=== PATIENT | female | born 1930 | race Caucasian/White ===

== ENCOUNTER → 2016-11-13 | Outpatient (CLI) | payer MEDICARE, BC ==
--- NOTE | 2016-11-13 13:07 | US ---
EXAMINATION TYPE: US venous Doppler duplex LE LT DATE OF EXAM: 11/13/2016 12:26 PM COMPARISON: NONE CLINICAL HISTORY: LLE Swelling R22.42. Increased left ankle swelling with skin redness compared to ri ght leg with symptoms bilaterally x months per patient. SIDE PERFORMED: Left TECHNIQUE: The lower extremity deep venous system is examined utilizing real time linear array sonog parth with graded compression, Doppler sonography and color-flow sonography. VESSELS IMAGED: Common Femoral Vein Deep Femoral Vein Greater Saphenous Vein * Femoral Vein Popliteal Vein Small Saphenous Vein * Proximal Calf Veins (* superficial vessels) Left Leg: Negative for DVT. Edema fluid channels are noted at left ankle at area of swelling. Grayscale, color Doppler, spectral doppler imaging performed of the deep veins of the lower extremiti es. There is normal flow, compressibility, vascular waveforms bilaterally. IMPRESSION: No ultrasound evidence for acute DVT in the left lower extremity. Mild to moderate sub cutaneous edema at left ankle joint level is noted.
== END | disposition home or self-care (01) ==
LOC: RADUSWWP 11:52
PROVIDERS: ATTEND Internal Medicine
DX: R60.0 Localized edema (principal)

== ENCOUNTER 2017-11-13 09:44 | Inpatient (IN) | payer MEDICARE, BC ==
[2017-11-13] MEDS ORDERED: SODIUM CHLORIDE 0.9% 1,000 ML IV STA (10:01)
--- NOTE | 2017-11-13 10:27 | ED ---
General Adult HPI - General Chief complaint: Recheck/Abnormal Lab/Rx Stated complaint: Abnormal Labs Time Seen by Provider: 11/13/17 10:00 Source: patient, family, RN notes reviewed, old records reviewed Mode of arrival: ambulatory Limitations: no limitations - History of Present Illness Initial comments: 87-year-old female presenting for evaluation of abnormal outpatient laboratory study. Patient was found to have sodium of 1:15 yesterday. These labs were obtained secondary to patient's worsening confusion over the past several weeks. She did have some mild forgetfulness prior to this. However over the past several weeks her family member states she has significantly declined. Patient is also had increased thirst and polydipsia. Past medical history includes hypertension and hypercholesterolemia. She is currently on 20 mg of Lasix and Dyazide. These medications were held yesterday secondary to her complaint of worsening confusion. Patient has no fever chills. No chest pain or shortness of breath. No complaints of focal weakness or paresthesias. No headache. She does have chronic left lower extremity swelling over the past year. She has been evaluated by ultrasound for DVT or primary care physician approximately one year ago. - Related Data Home Medications Medication Instructions Recorded Confirmed Ascorbic Acid [Vitamin C] 500 mg PO DAILY 11/13/17 11/13/17 Furosemide [Lasix] 20 mg PO DAILY 11/13/17 11/13/17 Meloxicam [Mobic] 7.5 mg PO DAILY 11/13/17 11/13/17 Metoprolol Tartrate [Lopressor] 25 mg PO BID 11/13/17 11/13/17 Simvastatin [Zocor] 40 mg PO DAILY 11/13/17 11/13/17 Triamterene-Hctz 37.5-25Mg 1 cap PO DAILY 11/13/17 11/13/17 [Dyazide 37.5-25 Capsule] Allergies Allergy/AdvReac Type Severity Reaction Status Date / Time No Known Allergies Allergy Verified 11/13/17 10:14 Review of Systems ROS Statement: Those systems with pertinent positive or pertinent negative responses have been documented in the HPI. ROS Other: All systems not noted in ROS Statement are negative. Past Medical History Past Medical History: Heart Failure, Hyperlipidemia, Hypertension History of Any Multi-Drug Resistant Organisms: None Reported Past Surgical History: No Surgical Hx Reported Past Psychological History: No Psychological Hx Reported Smoking Status: Never smoker Past Alcohol Use History: None Reported Past Drug Use History: None Reported General Exam Limitations: no limitations General appearance: alert, in no apparent distress Head exam: Present: atraumatic, normocephalic Eye exam: Present: normal appearance, PERRL, EOMI ENT exam: Present: normal exam Neck exam: Present: normal inspection. Absent: tenderness, meningismus Respiratory exam: Present: normal lung sounds bilaterally. Absent: respiratory distress, wheezes Cardiovascular Exam: Present: regular rate, normal rhythm GI/Abdominal exam: Present: soft. Absent: distended, tenderness, guarding Extremities exam: Present: pedal edema (Mild swelling of the left lower extremity compared to the right.). Absent: calf tenderness Neurological exam: Present: alert, CN II-XII intact. Absent: motor sensory deficit Psychiatric exam: Present: normal affect, normal mood Skin exam: Present: warm, dry, intact. Absent: cyanosis, diaphoretic Course Vital Signs 11/13/17 11/13/17 09:56 10:44 Temperature 98.2 F 98.4 F Pulse Rate 80 71 Respiratory 20 18 Rate Blood Pressure 148/71 O2 Sat by Pulse 96 95 Oximetry - Reevaluation(s) Reevaluation #1: 11/13/17 11:39 EKG is obtained, does show left bundle branch block. Patient has no known history of left bundle branch block, she denies any current chest pain or recent chest pain. Patient's family is made aware of this abnormal EKG. EKG Findings - EKG Comments: EKG Findings:: EKG: Normal sinus rhythm, left axis deviation, left bundle branch block, rate of 68, CT interval 176, QRS duration 122, QTC 484. No old for comparison. Medical Decision Making - Medical Decision Making 87 -year-old female presenting for evaluation of abnormal sodium and progressive confusion. Patient is on 2 diuretics including Lasix and Dyazide. Likely her hyponatremia is related to diuretic therapy. Remainder of her laboratory studies reveal a chloride of 72, stable hemoglobin. Other electrolytes are within normal limits. Patient is started on 75 mL an hour of normal saline. She will require fluid restriction and sodium monitoring. She will be admitted for further evaluation and treatment. Urinalysis is pending. - Lab Data Result diagrams: 11/13/17 10:40 11/13/17 10:40 Lab Results 11/13/17 11/13/17 11/13/17 Range/Units 10:40 10:40 10:40 WBC 12.8 H (3.8-10.6) k/uL RBC 5.09 (3.80-5.40) m/uL Hgb 15.6 (11.4-16.0) gm/dL Hct 44.7 (34.0-46.0) % MCV 87.8 (80.0-100.0) fL MCH 30.5 (25.0-35.0) pg MCHC 34.8 (31.0-37.0) g/dL RDW 12.4 (11.5-15.5) % Plt Count 316 (150-450) k/uL Neutrophils % 82 % Lymphocytes % 7 % Monocytes % 9 % Eosinophils % 1 % Basophils % 1 % Neutrophils # 10.5 H (1.3-7.7) k/uL Lymphocytes # 0.9 L (1.0-4.8) k/uL Monocytes # 1.1 H (0-1.0) k/uL Eosinophils # 0.1 (0-0.7) k/uL Basophils # 0.1 (0-0.2) k/uL PT (9.0-12.0) sec INR (<1.2) APTT (22.0-30.0) sec Sodium 117 L* (137-145) mmol/L Potassium 4.0 (3.5-5.1) mmol/L Chloride 78 L* (98-107) mmol/L Carbon Dioxide 32 H (22-30) mmol/L Anion Gap 7 mmol/L BUN 19 H (7-17) mg/dL Creatinine 0.74 (0.52-1.04) mg/dL Est GFR (CKD-EPI)AfAm 84 (>60 ml/min/1.73 sqM) Est GFR (CKD-EPI)NonAf 73 (>60 ml/min/1.73 sqM) Glucose 100 H (74-99) mg/dL Calcium 8.7 (8.4-10.2) mg/dL Phosphorus 3.1 (2.5-4.5) mg/dL Magnesium 2.0 (1.6-2.3) mg/dL Total Bilirubin 1.6 H (0.2-1.3) mg/dL AST 81 H (14-36) U/L ALT 51 (9-52) U/L Alkaline Phosphatase 52 (38-126) U/L Total Creatine Kinase 380 H (30-135) U/L CK-MB (CK-2) 6.7 H* (0.0-2.4) ng/mL CK-MB (CK-2) Rel Index 1.8 Troponin I <0.012 (0.000-0.034) ng/mL Total Protein 6.3 (6.3-8.2) g/dL Albumin 3.6 (3.5-5.0) g/dL 11/13/17 Range/Units 10:40 WBC (3.8-10.6) k/uL RBC (3.80-5.40) m/uL Hgb (11.4-16.0) gm/dL Hct (34.0-46.0) % MCV (80.0-100.0) fL MCH (25.0-35.0) pg MCHC (31.0-37.0) g/dL RDW (11.5-15.5) % Plt Count (150-450) k/uL Neutrophils % % Lymphocytes % % Monocytes % % Eosinophils % % Basophils % % Neutrophils # (1.3-7.7) k/uL Lymphocytes # (1.0-4.8) k/uL Monocytes # (0-1.0) k/uL Eosinophils # (0-0.7) k/uL Basophils # (0-0.2) k/uL PT 9.9 (9.0-12.0) sec INR 1.0 (<1.2) APTT 25.5 (22.0-30.0) sec Sodium (137-145) mmol/L Potassium (3.5-5.1) mmol/L Chloride (98-107) mmol/L Carbon Dioxide (22-30) mmol/L Anion Gap mmol/L BUN (7-17) mg/dL Creatinine (0.52-1.04) mg/dL Est GFR (CKD-EPI)AfAm (>60 ml/min/1.73 sqM) Est GFR (CKD-EPI)NonAf (>60 ml/min/1.73 sqM) Glucose (74-99) mg/dL Calcium (8.4-10.2) mg/dL Phosphorus (2.5-4.5) mg/dL Magnesium (1.6-2.3) mg/dL Total Bilirubin (0.2-1.3) mg/dL AST (14-36) U/L ALT (9-52) U/L Alkaline Phosphatase (38-126) U/L Total Creatine Kinase (30-135) U/L CK-MB (CK-2) (0.0-2.4) ng/mL CK-MB (CK-2) Rel Index Troponin I (0.000-0.034) ng/mL Total Protein (6.3-8.2) g/dL Albumin (3.5-5.0) g/dL Disposition Clinical Impression: Hyponatremia Disposition: ADMITTED IP TO THIS [facility] Condition: Stable Is patient prescribed a controlled substance at d/c from ED?: No Referrals: Rohan Elizabeth MD [Primary Care Provider] - 1-2 days Decision to Admit Reason: Admit from EC Decision Date: 11/13/17 Decision Time: 11:43
[2017-11-13 10:55] LABS: Basophils # (A) 0.1 k/uL (0-0.2); Basophils % (A) 1 %; Eosinophils # (A) 0.1 k/uL (0-0.7); Eosinophils % (A) 1 %; HCT 44.7 % (34.0-46.0); HGB 15.6 gm/dL (11.4-16.0); Lymphocytes # (A) 0.9 k/uL (1.0-4.8); Lymphocytes % (A) 7 %; MCH 30.5 pg (25.0-35.0); MCHC 34.8 g/dL (31.0-37.0); MCV 87.8 fL (80.0-100.0); Monocytes # (A) 1.1 k/uL (0-1.0); Monocytes % (A) 9 %; Neutrophils # (A) 10.5 k/uL (1.3-7.7); Neutrophils % (A) 82 %; Platelet Count 316 k/uL (150-450); RBC 5.09 m/uL (3.80-5.40); RDW 12.4 % (11.5-15.5); WBC 12.8 k/uL (3.8-10.6)
[2017-11-13 11:06] LABS: Albumin 3.6 g/dL (3.5-5.0); Calcium 8.7 mg/dL (8.4-10.2); Phosphorus 3.1 mg/dL (2.5-4.5); Total Bilirubin 1.6 mg/dL (0.2-1.3); Total Protein 6.3 g/dL (6.3-8.2)
[2017-11-13 11:10] LABS: Partial Thromboplastin Time 25.5 sec (22.0-30.0); Prothrombin Time 9.9 sec (9.0-12.0)
[2017-11-13 11:14] LABS: Creatine Kinase 380 U/L (30-135)
[2017-11-13 11:27] LABS: Troponin I <0.012 ng/mL (0.000-0.034)
[2017-11-13 11:34] LABS: Creatine Kinase MB 6.7 ng/mL (0.0-2.4)
[2017-11-13] MEDS ORDERED: NALOXONE 0.4 MG/ML 1 ML VIAL IV PRN (11:43)
[2017-11-13] MEDS ORDERED: DOCUSATE 100 MG CAP PO PRN (13:19)
[2017-11-13] MEDS ORDERED: MELATONIN 3 MG TABLET PO PRN (13:19)
[2017-11-13] MEDS ORDERED: ACETAMINOPHEN TAB 325 MG TAB PO PRN (13:19)
[2017-11-13] MEDS ORDERED: ONDANSETRON 4 MG/2 ML VIAL IVP PRN (13:19)
[2017-11-13 14:03] LABS: Appearance,Urine Clear (Clear); Bilirubin,Urine Negative (Negative); Blood,Urine Negative (Negative); Color,Urine Light Yellow; Glucose,Urine (UA) Negative (Negative); Ketones,Urine Negative (Negative); Leukocyte Esterase,Urine Negative (Negative); Nitrite,Urine Negative (Negative); PH, Urine 6.5 (5.0-8.0); Protein,Urine Negative (Negative); Specific Gravity,Urine 1.006 (1.001-1.035); Urobilinogen,Urine <2.0 mg/dL (<2.0)
--- NOTE | 2017-11-13 14:20 | P.HPIM ---
History of Present Illness H&P Date: 11/13/17 Chief Complaint: confusion Patient is an 87-year-old female with a past medical history of hypertension, dyslipidemia, osteoarthritis, and hearing loss who presented to the ER at the direction of Dr. Elizabeth for low sodium levels. She had been in Dr. Elizabeth's office yesterday for a medical evaluation for assisted living. The family had been seeking assisted living due to increasing confusion worsening over the last 2 weeks. At that point in time he maira blood work and this morning called the family with results of a sodium of 115, informed her not to take Lasix or Dyazide, and directed them to the ER. In the ER she underwent an extensive evaluation. Her vital signs were found to be within normal limits. Laboratory analysis revealed a white blood cell count of 12.8, sodium of 117, chloride 78, carbon dioxide 32, and BUN of 19. Her AST was mildly elevated at 81, total bilirubin 1.6. She was started on normal saline at a rate of 75 mL/h and arrangements were made for admission. Patient seen and examined with family present in the ER. They state that she has been getting confused over time. She's had increased confusion over the last 1-2 weeks especially. She also had a fall last week. She has been having more difficulty remembering things and events. They are unsure if she is taking her medications appropriately. She also reports that she's been drinking a lot of water. Her daughter reports that she drank approximately 5 pints of water over several hours when she was at home. They also report increased urination. She is chronic left lower extremity swelling which is unchanged. Per the daughter she has also been complaining of a gnawing in her stomach. Patient currently denies nausea, vomiting, diarrhea, constipation, and acid reflux. She also denies any abdominal pain at this time. Her daughter feels that her confusion has gotten somewhat better in the last 24 hours. They've been having caretakers stay with her as often as possible but she currently lives alone. They were seeking placement at an assisted living in [place] who currently has openings. Patient denies any chest pain, shortness of breath, palpitations, fainting, headache, seizures. She does report a "foggy feeling". She has not traveled anywhere recently or had any changes in medications. Review of Systems Positives: + Increased thirst, + increased urination, + confusion Pertinent positives and negatives as discussed in HPI, a complete review of systems was performed and all other systems are negative. Past Medical History Past Medical History: Hyperlipidemia, Hypertension, Osteoarthritis (OA) Additional Past Medical History / Comment(s): Per past medical record dated 2010 , pt has diverticulosis and hemorrhoids but pt/daughter do not recall this. History of Any Multi-Drug Resistant Organisms: None Reported Past Surgical History: Breast Surgery, Hysterectomy Additional Past Surgical History / Comment(s): colonoscopies/benign polypectomy , bilateral cataract removals with lens implants, benign L breast bx Past Anesthesia/Blood Transfusion Reactions: No Reported Reaction Past Psychological History: No Psychological Hx Reported Additional Psychological History / Comment(s): Pt resides alone in her own home. she uses a walker to ambulate. She has had a lady who does housework once a week and takes her shopping. She has been managing her own meds. She has been having increased confusion/forgetfullness. Smoking Status: Never smoker Past Alcohol Use History: None Reported Past Drug Use History: None Reported - Past Family History Father Family Medical History: Dementia Additional Family Medical History / Comment(s): Father around age 84yrs. Mother Family Medical History: Coronary Artery Disease (CAD) Additional Family Medical History / Comment(s): Mother around age 88yrs. Medications and Allergies Home Medications Medication Instructions Recorded Confirmed Type Ascorbic Acid [Vitamin C] 500 mg PO DAILY 11/13/17 11/13/17 History Furosemide [Lasix] 20 mg PO DAILY 11/13/17 11/13/17 History Meloxicam [Mobic] 7.5 mg PO DAILY 11/13/17 11/13/17 History Metoprolol Tartrate [Lopressor] 25 mg PO BID 11/13/17 11/13/17 History Simvastatin [Zocor] 40 mg PO DAILY 11/13/17 11/13/17 History Triamterene-Hctz 37.5-25Mg 1 cap PO DAILY 11/13/17 11/13/17 History [Dyazide 37.5-25 Capsule] Allergies Allergy/AdvReac Type Severity Reaction Status Date / Time No Known Allergies Allergy Verified 11/13/17 10:14 Physical Exam Osteopathic Statement: *. No significant issues noted on an osteopathic structural exam other than those noted in the History and Physical/Consult. Vitals: Vital Signs Temp Pulse Resp BP Pulse Ox 11/13/17 12:18 99 11/13/17 12:13 70 18 143/62 11/13/17 10:44 98.4 F 71 18 95 11/13/17 09:56 98.2 F 80 20 148/71 96 Intake and Output 11/12/17 11/13/17 11/13/17 22:59 06:59 14:59 Other: Weight 90 kg General: non toxic, no distress, appears at stated age, Obese Derm: Abrasion to the chin and left upper lip-family and patient are unsure how these occurred no unusual ecchymoses, warm, dry Head: atraumatic, normocephalic, symmetric Eyes: EOMI, no lid lag, anicteric sclera, pupils equal round reactive to light ENT: Nose and ears atraumatic, no thrush, no pharyngeal erythema, hard of hearing Neck: No thyromegaly, no cervical lymphadenopathy, trachea midline, supple Mouth: no lip lesion, mucus membranes moist Cardiovascular: S1S2 reg, no murmur, positive posterior tibial pulse bilateral, 2+ edema left LE, no edema R LE, capillary refill less than 2 seconds Lungs: Decreased breath sounds bilateral bases, no rhonchi, no rales , no accessory muscle use Abdominal: soft, nontender to palpation, no guarding, no appreciable organomegaly, normal bowel sounds Ext: no gross muscle atrophy, muscle strength 4 out of 5 all 4 extremities, finger to nose within normal limits, Psych: Alert, oriented to self and location, thinks it is 2018, appropriate affect Results CBC & Chem 7: 11/13/17 10:40 11/13/17 10:40 Labs: Abnormal Lab Results - Last 24 Hours (Table) 11/13/17 11/13/17 11/13/17 Range/Units 10:40 10:40 10:40 WBC 12.8 H (3.8-10.6) k/uL Neutrophils # 10.5 H (1.3-7.7) k/uL Lymphocytes # 0.9 L (1.0-4.8) k/uL Monocytes # 1.1 H (0-1.0) k/uL Sodium 117 L* (137-145) mmol/L Chloride 78 L* (98-107) mmol/L Carbon Dioxide 32 H (22-30) mmol/L BUN 19 H (7-17) mg/dL Glucose 100 H (74-99) mg/dL Total Bilirubin 1.6 H (0.2-1.3) mg/dL AST 81 H (14-36) U/L Total Creatine Kinase 380 H (30-135) U/L CK-MB (CK-2) 6.7 H* (0.0-2.4) ng/mL Comments: EKG is reviewed by myself reveals a left bundle branch block at 68 bpm, QRS 122 , KS interval is normal, no significant ST-T wave changes Thrombosis Risk Factor Assmnt - DVT/VTE Prophylaxis DVT/VTE Prophylaxis: Pharmacologic Prophylaxis ordered - Choose All That Apply Any of the Below Risk Factors Present?: Yes Each Factor Represents 1 point: Obesity (BMI >25) Other Risk Factors: Yes Each Risk Factor Represents 3 Points: Age 75 years or older Other congenital or acquired thrombophilia - If yes, enter type in comment: No Thrombosis Risk Factor Assessment Total Risk Factor Score: 4 Thrombosis Risk Factor Assessment Level: Moderate Risk Assessment and Plan Assessment: Symptomatic hyponatremia -The patient symptoms have been present for several weeks and I believe this was a slowly occurring hyponatremia therefore we will need to slowly increase serum sodium levels. -Careful fluid resuscitation with normal saline at 75 mL/h -Consult nephrology, currently awaiting call back -Electrolytes every 4 hours -Check urine sodium, urine osmolality, serum sodium, TSH is normal, check a.m. cortisol level -Remain off of Mobic, Lasix, hydrochlorothiazide, and triamterene -Has mild dependent edema will check echocardiogram to rule out congestive heart failure -Seizure precautions Acute encephalopathy, probable metabolic -Treatment as outlined above -Check urinalysis to rule out concomitant urinary tract infection with confusion and elevated white blood cell count Recent fall -Fall precautions -PT evaluation Hypertension -Off all diuretic therapy -Continue metoprolol Dyslipidemia -Statin therapy Elevated bilirubin -Undetermined significance -Repeat in a.m. -If remains elevated check liver ultrasound Dr. Hardeep cox. Surrogate decision-maker: Daughter-Shania Garcia CODE STATUS:DNC (see APC code) DVT prophylaxis: Lovenox Discussed with: Patient, family, ED nursing Anticipated discharge: 3-[address]: home vs Assisted living A total of 65 minutes was spent on the care of this complex patient more than 50 % of the time was spent in counseling and care coordination.
[2017-11-13 15:42] LABS: Appearance,Urine Clear (Clear); Bilirubin,Urine Negative (Negative); Blood,Urine Negative (Negative); Color,Urine Light Yellow; Glucose,Urine (UA) Negative (Negative); Ketones,Urine Negative (Negative); Leukocyte Esterase,Urine Negative (Negative); Nitrite,Urine Negative (Negative); PH, Urine 6.5 (5.0-8.0); Protein,Urine Negative (Negative); Specific Gravity,Urine 1.007 (1.001-1.035); Urobilinogen,Urine <2.0 mg/dL (<2.0)
[2017-11-13 19:03] LABS: Potassium 3.6 mmol/L (3.5-5.1)
[2017-11-13] MEDS: METOPROLOL TARTRATE 25 MG TAB PO SCH (20:17)
[2017-11-14 03:39] LABS: Potassium 4.1 mmol/L (3.5-5.1)
[2017-11-14 07:53] LABS: HCT 40.9 % (34.0-46.0); HGB 14.2 gm/dL (11.4-16.0); MCH 31.5 pg (25.0-35.0); MCHC 34.7 g/dL (31.0-37.0); MCV 90.6 fL (80.0-100.0); Mean Platelet Volume 5.9; Platelet Count 283 k/uL (150-450); RBC 4.51 m/uL (3.80-5.40); WBC 9.7 k/uL (3.8-10.6)
[2017-11-14 08:00] LABS: Albumin 3.1 g/dL (3.5-5.0); Calcium 8.6 mg/dL (8.4-10.2); Magnesium 2.3 mg/dL (1.6-2.3); Potassium 4.3 mmol/L (3.5-5.1); Total Bilirubin 1.2 mg/dL (0.2-1.3); Total Protein 5.6 g/dL (6.3-8.2)
[2017-11-14] MEDS ORDERED: DEXTROSE 5% IN WATER 1,000 ML IV ONE (08:26)
--- NOTE | 2017-11-14 08:35 | ECHOF ---
Referral Reason:edema, chf MEASUREMENTS -------- HEIGHT: 152.4 cm WEIGHT: 89.8 kg BP: RVIDd: 2.8 cm (< 3.3) IVSd: 1.2 cm (0.6 - 1.1) LVIDd: 3.4 cm (3.9 - 5.3) LVPWd: 1.3 cm (0.6 - 1.1) IVSs: 1.5 cm LVIDs: 2.7 cm LVPWs: 1.5 cm LAESV Index (A-L): 24.64 ml/m Ao Diam: 3.0 cm (2.0 - 3.7) AV Cusp: 1.6 cm (1.5 - 2.6) LA Diam: 3.2 cm (2.7 - 3.8) MV EXCURSION: 14.924 mm (> 18.000) MV EF SLOPE: 80 mm/s (70 - 150) EPSS: 0.7 cm MV E Rafael: 0.55 m/s MV DecT: 258 ms MV A Rafael: 0.87 m/s MV E/A Ratio: 0.63 RAP: 5.00 mmHg RVSP: 10.99 mmHg FINDINGS -------- Sinus rhythm. This was a technically adequate study. The left ventricular size is normal. There is moderate concentric left ventricular hypertrophy. O verall left ventricular systolic function is low-normal with, an EF between 50 - 55 %. The right ventricle is normal in size. The left atrial size is normal. The right atrial size is normal. The aortic valve is trileaflet, and appears structurally normal. No aortic stenosis or regurgitation. Mild mitral annular calcification present. Mild mitral regurgitation is present. Trace tricuspid regurgitation present. There is no evidence of pulmonary hypertension. The right ventricular systolic pressure, as measured by Doppler, is 10.99mmHg. The pulmonic valve was not well visualized. The aortic root size is normal. Echo free space represents a pericardial fat pad. CONCLUSIONS -------- 1. The left ventricular size is normal. 2. There is moderate concentric left ventricular hypertrophy. 3. Overall left ventricular systolic function is low-normal with, an EF between 50 - 55 %. 4. The right ventricle is normal in size. 5. The left atrial size is normal. 6. The right atrial size is normal. 7. The aortic valve is trileaflet, and appears structurally normal. No aortic stenosis or regurgitati on. 8. Mild mitral annular calcification present. 9. Trace tricuspid regurgitation present. 10. There is no evidence of pulmonary hypertension. 11. The right ventricular systolic pressure, as measured by Doppler, is 10.99mmHg. 12. The pulmonic valve was not well visualized. 13. The aortic root size is normal. 14. Echo free space represents a pericardial fat pad. LABORATORY EQUIPMENT CLEANER: Yessenia Greenberg RDCS
--- NOTE | 2017-11-14 09:27 | P.PN ---
Subjective Progress Note Date: 11/14/17 Principal diagnosis: Confusion Patient is an 87-year-old female with a past medical history of hypertension, dyslipidemia, osteoarthritis, and hearing loss who presented to the ER at the direction of Dr. Elizabeth for low sodium levels. She had been in Dr. Elizabeth's office yesterday for a medical evaluation for assisted living. The family had been seeking assisted living due to increasing confusion worsening over the last 2 weeks. At that point in time he maira blood work and this morning called the family with results of a sodium of 115, informed her not to take Lasix or Dyazide, and directed them to the ER. In the ER she underwent an extensive evaluation. Her vital signs were found to be within normal limits. Laboratory analysis revealed a white blood cell count of 12.8, sodium of 117, chloride 78, carbon dioxide 32, and BUN of 19. Her AST was mildly elevated at 81, total bilirubin 1.6. She was started on normal saline at a rate of 75 mL/h and she was admitted to the selective care unit. Her sodium slowly increased with her diuretics being held and minimal fluid resuscitation. However they abruptly increased by 6 in approximately 4 hours between 6:57 AM on the morning of 11/14. Her normal saline was transitioned to D5 to slow the rapid rate of correction. She is currently awaiting nephrology consultation. Urine sodium is less than 5 showing appropriate retention of sodium. Patient seen and examined at bedside. No chest pain, shortness of breath, nausea, or vomiting. She denies feeling lightheaded or dizzy. She is alert and oriented to self and place but does not remember me from yesterday. Case discussed with nursing. She will alert me when family arrives to hospital. Objective - Vital Signs Vital signs: Vital Signs Temp 96.9 F L 11/14/17 03:29 Pulse 69 11/14/17 03:30 Resp 18 11/14/17 03:30 BP 136/63 11/14/17 03:29 Pulse Ox 97 11/14/17 03:29 Intake & Output 11/13/17 11/14/17 11/14/17 18:59 06:59 18:59 Intake Total 100 1050 Output Total 300 Balance -200 1050 Weight 90 kg 88.8 kg Intake: Intake, IV Titration 850 Amount Sodium Chloride 0.9% 1, 850 000 ml @ 75 mls/hr IV . [id number] STA Rx#:[id number] Oral 100 200 Output: Urine 300 Other: Voiding Method Toilet # Voids 1 - Exam General: non toxic, no distress, appears at stated age, obese Derm: warm, dry Head: atraumatic, normocephalic, symmetric Eyes: EOMI, no lid lag, anicteric sclera Mouth: no lip lesion, mucus membranes moist Cardiovascular: S1S2 reg, no murmur, positive posterior tibial pulse bilateral, Lungs: Decreased breath sounds bilateral bases, no rhonchi, no rales , no accessory muscle use Abdominal: soft, nontender to palpation, no guarding, no appreciable organomegaly Ext: no gross muscle atrophy, 2+ edema left lower extremity, 1+ edema right lower extremity, no contractures Neuro: CN II-XI grossly intact, no focal neuro deficits Psych: Alert, oriented to place and self, believes it is 20 "something", appropriate affect - Labs CBC & Chem 7: 11/14/17 07:26 11/14/17 07:26 Labs: Abnormal Lab Results - Last 24 Hours (Table) 11/13/17 11/13/17 11/13/17 Range/Units 10:40 10:40 10:40 WBC 12.8 H (3.8-10.6) k/uL Neutrophils # 10.5 H (1.3-7.7) k/uL Lymphocytes # 0.9 L (1.0-4.8) k/uL Monocytes # 1.1 H (0-1.0) k/uL Sodium 117 L* (137-145) mmol/L Chloride 78 L* (98-107) mmol/L Carbon Dioxide 32 H (22-30) mmol/L BUN 19 H (7-17) mg/dL Glucose 100 H (74-99) mg/dL Osmolality (280-301) mosm/kg Total Bilirubin 1.6 H (0.2-1.3) mg/dL AST 81 H (14-36) U/L ALT (9-52) U/L Total Creatine Kinase 380 H (30-135) U/L CK-MB (CK-2) 6.7 H* (0.0-2.4) ng/mL Total Protein (6.3-8.2) g/dL Albumin (3.5-5.0) g/dL Ur Random Sodium (30-90) mmol/L 11/13/17 11/13/17 11/13/17 Range/Units 13:45 14:50 18:40 WBC (3.8-10.6) k/uL Neutrophils # (1.3-7.7) k/uL Lymphocytes # (1.0-4.8) k/uL Monocytes # (0-1.0) k/uL Sodium 118 L* 119 L* (137-145) mmol/L Chloride 76 L* 79 L* (98-107) mmol/L Carbon Dioxide 35 H 33 H (22-30) mmol/L BUN (7-17) mg/dL Glucose (74-99) mg/dL Osmolality 258 L (280-301) mosm/kg Total Bilirubin (0.2-1.3) mg/dL AST (14-36) U/L ALT (9-52) U/L Total Creatine Kinase (30-135) U/L CK-MB (CK-2) (0.0-2.4) ng/mL Total Protein (6.3-8.2) g/dL Albumin (3.5-5.0) g/dL Ur Random Sodium <5 L (30-90) mmol/L 11/13/17 11/14/17 11/14/17 Range/Units 22:33 03:11 07:26 WBC (3.8-10.6) k/uL Neutrophils # (1.3-7.7) k/uL Lymphocytes # (1.0-4.8) k/uL Monocytes # (0-1.0) k/uL Sodium 120 L* 123 L 129 L (137-145) mmol/L Chloride 82 L 86 L 88 L (98-107) mmol/L Carbon Dioxide 31 H 36 H (22-30) mmol/L BUN 18 H (7-17) mg/dL Glucose 104 H (74-99) mg/dL Osmolality (280-301) mosm/kg Total Bilirubin (0.2-1.3) mg/dL AST 63 H (14-36) U/L ALT 53 H (9-52) U/L Total Creatine Kinase (30-135) U/L CK-MB (CK-2) (0.0-2.4) ng/mL Total Protein 5.6 L (6.3-8.2) g/dL Albumin 3.1 L (3.5-5.0) g/dL Ur Random Sodium (30-90) mmol/L Assessment and Plan Assessment: Symptomatic hyponatremia -Patient was appropriately correcting slowly, however between 3-7 AM she had a rapid correction of 6. We will stop her normal saline and start D5 at 20 , pulse per hour well awaiting nephrology recommendations. -Await nephrology recommendations -Electrolytes every 4 hours -urine sodium less than 5, urine osmolality 242, serum sodium 258, TSH is normal , check a.m. cortisol level -Remain off of Mobic, Lasix, hydrochlorothiazide, and triamterene -Echocardiogram within normal limits other than moderate LVH -Seizure precautions Acute metabolic encephalopathy on top of probable dementia -Treatment as outlined above Recent fall -Fall precautions -PT evaluation Hypertension -Off all diuretic therapy -Continue metoprolol -Follow blood pressures Dyslipidemia -Statin therapy Elevated bilirubin, resolved We'll plan on updating family when they come to the hospital. Anticipate that patient will continue to need greater than 2 day stay due to her symptomatic hyponatremia, need for frequent laboratory analysis, and need for IV fluids. DVT prophylaxis: Lovenox Discussed with: Patient, nursing Anticipated discharge: 2-3days Anticipated discharge place: home vs Assisted living A total of 35 minutes was spent on the care of this complex patient more than 50 % of the time was spent in counseling and care coordination.
[2017-11-14] MEDS: METOPROLOL TARTRATE 25 MG TAB PO SCH ×2 (09:50→20:38)
[2017-11-14] MEDS: ATORVASTATIN 20 MG TAB PO SCH (09:50)
[2017-11-14] MEDS: ENOXAPARIN 40 MG/0.4 ML SYRINGE SQ SCH (09:50)
[2017-11-14 11:36] LABS: Potassium 3.9 mmol/L (3.5-5.1)
--- NOTE | 2017-11-14 14:00 | P.NPCON ---
History of Present Illness - Reason for Consult Consult date: 11/14/17 hyponatremia - Chief Complaint Confusion and hyponatremia - History of Present Illness 87-year-old female seen in consultation because of hyponatremia with a serum sodium of 115 associated with worsening of mental status.. After admission she has been corrected with saline and has rapidly corrected to 129 as of this morning. Patient is known with underlying forgetfulness and dementia but was able to live alone and take care of her own medications. No changes in recent medications. She is on Lasix and hydrochlorothiazide both. Supposedly according to daughter was present in the room when I interviewed the patient, patient had been drinking large amounts of cocaine and water. She was eating fairly as this is a daughter. There has been no confusion that the daughter can see regarding her medications intake Patient has been confused for the last 2 weeks. No history of nausea vomiting diarrhea. The past she's had left leg more swollen and has DVT ruled out about a year ago. Past Medical History Past Medical History: Hyperlipidemia, Hypertension, Osteoarthritis (OA) Additional Past Medical History / Comment(s): Per past medical record dated 2010 , pt has diverticulosis and hemorrhoids but pt/daughter do not recall this. History of Any Multi-Drug Resistant Organisms: None Reported Past Surgical History: Breast Surgery, Hysterectomy Additional Past Surgical History / Comment(s): colonoscopies/benign polypectomy , bilateral cataract removals with lens implants, benign L breast bx Past Anesthesia/Blood Transfusion Reactions: No Reported Reaction Past Psychological History: No Psychological Hx Reported Additional Psychological History / Comment(s): Pt resides alone in her own home. she uses a walker to ambulate. She has had a lady who does housework once a week and takes her shopping. She has been managing her own meds. She has been having increased confusion/forgetfullness. Smoking Status: Never smoker Past Alcohol Use History: None Reported Past Drug Use History: None Reported - Past Family History Father Family Medical History: Dementia Additional Family Medical History / Comment(s): Father around age 84yrs. Mother Family Medical History: Coronary Artery Disease (CAD) Additional Family Medical History / Comment(s): Mother around age 88yrs. Medications and Allergies Home Medications Medication Instructions Recorded Confirmed Type Ascorbic Acid [Vitamin C] 500 mg PO DAILY 11/13/17 11/13/17 History Furosemide [Lasix] 20 mg PO DAILY 11/13/17 11/13/17 History Meloxicam [Mobic] 7.5 mg PO DAILY 11/13/17 11/13/17 History Metoprolol Tartrate [Lopressor] 25 mg PO BID 11/13/17 11/13/17 History Simvastatin [Zocor] 40 mg PO DAILY 11/13/17 11/13/17 History Triamterene-Hctz 37.5-25Mg 1 cap PO DAILY 11/13/17 11/13/17 History [Dyazide 37.5-25 Capsule] Allergies Allergy/AdvReac Type Severity Reaction Status Date / Time No Known Allergies Allergy Verified 11/13/17 10:14 Physical Exam Vitals: Vital Signs Temp Pulse Pulse Resp BP BP Pulse Ox 11/14/17 03:30 69 18 11/14/17 03:29 96.9 F L 69 18 136/63 97 11/14/17 00:00 98.1 F 66 18 139/71 95 11/13/17 20:10 97.4 F L 77 16 157/71 94 L 11/13/17 18:22 96.7 F L 74 16 144/66 95 11/13/17 15:27 98.1 F 74 18 144/71 100 11/13/17 14:15 77 20 152/64 98 Intake and Output 11/13/17 11/14/17 11/14/17 22:59 06:59 14:59 Intake Total 100 1050 Balance 100 1050 Intake: Intake, IV Titration 850 Amount Sodium Chloride 0.9% 1, 850 000 ml @ 75 mls/hr IV . [id number] STA Rx#:[id number] Oral 100 200 Other: Voiding Method Toilet Toilet # Voids 1 Weight 88.8 kg Examinations awake alert. She is disoriented to time place but oriented to person. HEENT exam no JVP lymphadenopathy thyromegaly neck is supple no facial asymmetry pupils are equal. Heart sounds are unremarkable for any murmur rub gallop Abdomen soft nontender no organomegaly status masses Lungs are clear to auscultation percussion good air entry bilaterally Extremity exam was no edema on the right left has 1+ edema chronic. Neurologically awake alert but disoriented Results - Lab Results Most recent lab results Calcium 8.6 mg/dL (8.4-10.2) 11/14/17 07:26 Phosphorus 3.1 mg/dL (2.5-4.5) 11/13/17 10:40 Magnesium 2.3 mg/dL (1.6-2.3) 11/14/17 07:26 11/14/17 07:26 11/14/17 10:52 Assessment and Plan Assessment: Impression 1. Severe hyponatremia with sodium of 115 secondary to combination of large amount of water intake and beverage intake and Lasix and hydrochlorothiazide. 2. History of baseline forgetfulness and possibly mild early dementia, she was made worse by this hyponatremia and is now reversing sodium is up to 129 this morning. 3. Edema left leg more than right, History of DVT ruled out on the left leg 4. Obesity. Recommendation. 1. Agree with increasing the IV normal sign to 20 mL an hour and following up her sodium and allowing it to go up slowly to normal range. 2. In the future avoid hydrochlorothiazide and use Lasix sparingly. If necessary we can use Aldactone instead. 3. Check sodium every 8 hours for right now. 4. Patient needs to be under some supervision when discharged as she might get confused with her medications. Thank you for this consultation and we'll continue to follow
[2017-11-14 15:22] LABS: Potassium 5.2 mmol/L (3.5-5.1)
[2017-11-14 20:47] LABS: Potassium 4.3 mmol/L (3.5-5.1)
[2017-11-15 04:42] LABS: HGB 15.7 gm/dL (11.4-16.0); MCH 31.7 pg (25.0-35.0); MCV 93.1 fL (80.0-100.0); Mean Platelet Volume 5.8; Platelet Count 275 k/uL (150-450); RBC 4.94 m/uL (3.80-5.40); RDW 12.9 % (11.5-15.5); WBC 10.9 k/uL (3.8-10.6)
[2017-11-15 04:59] LABS: Albumin 3.5 g/dL (3.5-5.0); Calcium 8.9 mg/dL (8.4-10.2); Potassium 4.1 mmol/L (3.5-5.1); Total Bilirubin 1.1 mg/dL (0.2-1.3); Total Protein 6.2 g/dL (6.3-8.2)
--- NOTE | 2017-11-15 08:23 | P.PN ---
Subjective Progress Note Date: 11/15/17 Principal diagnosis: Confusion Patient is an 87-year-old female with a past medical history of hypertension, dyslipidemia, osteoarthritis, and hearing loss who presented to the ER at the direction of Dr. Elizabeth for low sodium levels. She had been in Dr. Elizabeth's office yesterday for a medical evaluation for assisted living. The family had been seeking assisted living due to increasing confusion worsening over the last 2 weeks. At that point in time he maira blood work and this morning called the family with results of a sodium of 115, informed her not to take Lasix or Dyazide, and directed them to the ER. In the ER she underwent an extensive evaluation. Her vital signs were found to be within normal limits. Laboratory analysis revealed a white blood cell count of 12.8, sodium of 117, chloride 78, carbon dioxide 32, and BUN of 19. Her AST was mildly elevated at 81, total bilirubin 1.6. She was started on normal saline at a rate of 75 mL/h and she was admitted to the selective care unit. Her sodium slowly increased with her diuretics being held and minimal fluid resuscitation. However they abruptly increased by 6 in approximately 4 hours between 6:57 AM on the morning of 11/14. Her normal saline was transitioned to D5 to slow the rapid rate of correction. She is currently awaiting nephrology consultation. Urine sodium is less than 5 showing appropriate retention of sodium. She was taken off all fluids on the afternoon of 11/14. On the moring of her sodium was 132. Her WBC had increased slightly and she was retaining more fluid. Her Blood pressure was elevated this morning. Patient seen and examined at bedside. She denies chest pain, shortness of breath, nausea, or vomiting. Had a BM yesterday. She is alert and oriented to self and place and remembers me from yesterday. She is asking when she will go home. I discussed that she will need close monitoring after her hospitalization and that we are looking into a place with [facility]. She understands and is better able to understand today. Told patient I am available to update family at any time today once they arrive. Case discussed with nursing. Objective - Vital Signs Vital signs: Vital Signs Temp 97.4 F L 11/15/17 04:00 Pulse 77 11/15/17 07:45 Resp 18 11/15/17 07:45 BP 152/81 11/15/17 04:00 Pulse Ox 95 11/15/17 04:00 Intake & Output 11/14/17 11/15/17 11/15/17 18:59 06:59 18:59 Intake Total 240 Balance 240 Weight 87.3 kg Intake: Oral 240 Other: Voiding Method Toilet Toilet Toilet # Voids 1 - Exam General: non toxic, no distress, appears at stated age, obese Derm: warm, dry Head: atraumatic, normocephalic, symmetric Eyes: EOMI, no lid lag, anicteric sclera Mouth: no lip lesion, mucus membranes moist Cardiovascular: S1S2 reg, no murmur, positive posterior tibial pulse bilateral, Lungs: rhonchi left base , no accessory muscle use Abdominal: soft, nontender to palpation, no guarding, no appreciable organomegaly Ext: no gross muscle atrophy, 2+ edema left lower extremity, 2+ edema right lower extremity, no contractures Neuro: CN II-XI grossly intact, no focal neuro deficits Psych: Alert, oriented to being in a hospital was unable to tell me that it is [place] today but is aware that it is 2018, appropriate affect - Labs CBC & Chem 7: 11/15/17 04:12 11/15/17 04:12 Labs: Abnormal Lab Results - Last 24 Hours (Table) 11/14/17 11/14/17 11/14/17 Range/Units 10:52 14:47 19:59 WBC (3.8-10.6) k/uL Sodium 129 L 128 L 130 L (137-145) mmol/L Potassium 5.2 H (3.5-5.1) mmol/L Chloride 88 L 90 L 90 L (98-107) mmol/L Carbon Dioxide 34 H 31 H (22-30) mmol/L Glucose (74-99) mg/dL AST (14-36) U/L ALT (9-52) U/L Total Protein (6.3-8.2) g/dL 11/15/17 11/15/17 Range/Units 04:12 04:12 WBC 10.9 H (3.8-10.6) k/uL Sodium 132 L (137-145) mmol/L Potassium (3.5-5.1) mmol/L Chloride 91 L (98-107) mmol/L Carbon Dioxide (22-30) mmol/L Glucose 121 H (74-99) mg/dL AST 50 H (14-36) U/L ALT 55 H (9-52) U/L Total Protein 6.2 L (6.3-8.2) g/dL Assessment and Plan Assessment: Symptomatic hyponatremia, improving - with increasing edema and elevated blood pressure will add aldactone at nephrology suggestion. Check CXR. -Await nephrology recommendations -Electrolytes in AM -urine sodium less than 5, urine osmolality 242, serum sodium 258, TSH is normal , a.m. cortisol level normal -Remain off of Mobic, Lasix, hydrochlorothiazide, and triamterene -Echocardiogram within normal limits other than moderate LVH -Seizure precautions discontinued Hypertension, accelerated -add aldactone and norvasc - follow BP closely -Continue metoprolol -Follow blood pressures Acute metabolic encephalopathy on top of probable dementia, mentation improving -Treatment as outlined above - may benefit from aricept, but will leave this to the discretion of her PCP. Recent fall -Fall precautions -PT evaluation Dyslipidemia -Statin therapy Elevated bilirubin, resolved Once BP controlled then transfer to [facility]. DVT prophylaxis: Lovenox Discussed with: Patient, nursing Anticipated discharge: 24-[address]: home vs Assisted living A total of 35 minutes was spent on the care of this complex patient more than 50 % of the time was spent in counseling and care coordination.
--- NOTE | 2017-11-15 09:15 | XR ---
EXAMINATION: XR chest 1V portable DATE AND TIME: 11/15/2017 8:30 AM ORDERING PROVIDER: Alcira Doran DO CLINICAL INDICATION: shortness of breath TECHNIQUE: AP portable upright COMPARISON: None. DESCRIPTION: The lungs are predominantly clear. However there is mild silhouetting of the lower lung zone pulmonary vasculature and the left heart border suggesting mild interstitial phase pulmonary robert ma if clinically corroborated. The pleural spaces are negative. The cardiac silhouette is not enlarged. The skeletal structures are intact without focal findings. The overlying soft tissues are prominent. IMPRESSION: Suspect mild interstitial phase pulmonary edema if clinically corroborated.
[2017-11-15] MEDS: ENOXAPARIN 40 MG/0.4 ML SYRINGE SQ SCH (09:24)
[2017-11-15] MEDS: SPIRONOLACTONE 25 MG TAB PO SCH (09:25)
[2017-11-15] MEDS: METOPROLOL TARTRATE 25 MG TAB PO SCH ×2 (09:25→20:30)
[2017-11-15] MEDS: ATORVASTATIN 20 MG TAB PO SCH (09:25)
[2017-11-15] MEDS: amLODIPine 2.5 MG TAB PO SCH (09:25)
--- NOTE | 2017-11-15 13:41 | P.PN ---
Subjective Progress Note Date: 11/15/17 Principal diagnosis: This is a 87-year-old female seen in consultation because of hyponatremia deemed to be from combination of Lasix and hydrochlorothiazide and excessive water intake. She was corrected with IV normal saline. Her mental status was somewhat worse and just has recovered now. She has baseline dementia. She can be discharged to a assisted living facility. She denies any nausea vomiting has a great appetite. No dizziness is able to walk. History of present illness Patient is known with underlying forgetfulness and dementia but was able to live alone and take care of her own medications. No changes in recent medications. She is on Lasix and hydrochlorothiazide both. Supposedly according to daughter was present in the room when I interviewed the patient, patient had been drinking large amounts of cocaine and water. She was eating fairly as this is a daughter. There has been no confusion that the daughter can see regarding her medications intake Patient has been confused for the last 2 weeks. Objective - Vital Signs Vital signs: Vital Signs Temp 97.4 F L 11/15/17 04:00 Pulse 77 11/15/17 07:45 Resp 18 11/15/17 07:45 BP 152/81 11/15/17 04:00 Pulse Ox 95 11/15/17 04:00 Intake & Output 11/14/17 11/15/17 11/15/17 18:59 06:59 18:59 Intake Total 240 Balance 240 Weight 87.3 kg Intake: Oral 240 Other: Voiding Method Toilet Toilet Toilet # Voids 1 On examination she is awake alert. Comfortable and cheerful HEENT exam no JVP neck is supple no facial asymmetry Lungs are clear to auscultation percussion good air entry bilaterally Heart sounds are unremarkable no murmur rub gallop Abdomen soft nontender no organomegaly status masses Extremity exam was trace edema Neurologically awake alert without any focal motor deficit. She is forgetful. - Labs CBC & Chem 7: 11/15/17 04:12 11/15/17 11:33 Labs: Abnormal Lab Results - Last 24 Hours (Table) 11/14/17 11/14/17 11/15/17 Range/Units 14:47 19:59 04:12 WBC (3.8-10.6) k/uL Sodium 128 L 130 L 132 L (137-145) mmol/L Potassium 5.2 H (3.5-5.1) mmol/L Chloride 90 L 90 L 91 L (98-107) mmol/L Carbon Dioxide 31 H (22-30) mmol/L Glucose 121 H (74-99) mg/dL AST 50 H (14-36) U/L ALT 55 H (9-52) U/L Total Protein 6.2 L (6.3-8.2) g/dL 11/15/17 11/15/17 Range/Units 04:12 11:33 WBC 10.9 H (3.8-10.6) k/uL Sodium 131 L (137-145) mmol/L Potassium (3.5-5.1) mmol/L Chloride 91 L (98-107) mmol/L Carbon Dioxide 31 H (22-30) mmol/L Glucose (74-99) mg/dL AST (14-36) U/L ALT (9-52) U/L Total Protein (6.3-8.2) g/dL Assessment and Plan Assessment: Impression 1. Severe hyponatremia with sodium of 115 secondary to combination of large amount of water intake and beverage intake and Lasix and hydrochlorothiazide. Sodium is improved to 132 as of this morning. 2. History of baseline forgetfulness and possibly mild early dementia, she was made worse by this hyponatremia and is now reversing sodium is up to 129 this morning. 3. Edema left leg more than right, History of DVT ruled out on the left leg 4. Obesity. Recommendation. 1. Continue fluid restriction until sodium is in the 135 range. 2. In the future avoid hydrochlorothiazide and use Lasix sparingly. If necessary we can use Aldactone instead. 3. Check labs tomorrow 4. Patient needs to be under some supervision when discharged as she might get confused with her medications. Thank you for this consultation and we'll continue to follow
[2017-11-15 21:22] VITALS: PULSE 75; RESP 20
[2017-11-16 06:20] VITALS: BP 142/65; TEMP 97.8
[2017-11-16 07:20] LABS: HCT 43.8 % (34.0-46.0); HGB 14.9 gm/dL (11.4-16.0); MCH 31.2 pg (25.0-35.0); MCHC 33.9 g/dL (31.0-37.0); MCV 91.9 fL (80.0-100.0); Platelet Count 303 k/uL (150-450); RBC 4.76 m/uL (3.80-5.40); RDW 12.9 % (11.5-15.5)
[2017-11-16 07:45] LABS: Calcium 8.8 mg/dL (8.4-10.2); Potassium 4.2 mmol/L (3.5-5.1)
[2017-11-16] MEDS: ENOXAPARIN 40 MG/0.4 ML SYRINGE SQ SCH (09:30)
[2017-11-16] MEDS: METOPROLOL TARTRATE 25 MG TAB PO SCH (09:30)
[2017-11-16] MEDS: amLODIPine 2.5 MG TAB PO SCH (09:30)
[2017-11-16] MEDS: ATORVASTATIN 20 MG TAB PO SCH (09:30)
[2017-11-16] MEDS: SPIRONOLACTONE 25 MG TAB PO SCH (09:30)
--- NOTE | 2017-11-16 09:54 | P.DS ---
Providers Date of admission: 11/13/17 11:43 Expected date of discharge: 11/16/17 Attending physician: Alcira Doran DO Consults: 11/13/17 13:21 Consult Physician Routine Consulting Provider: Vaibhav Watson Consult Reason/Comments: hyponatremia Do you want consulting provider notified?: Yes Primary care physician: Rohan Elizabeth - Discharge Diagnosis(es) (1) Acute hyponatremia Current Visit: Yes Status: Acute (2) Hypertensive urgency Current Visit: Yes Status: Resolved (3) Metabolic encephalopathy Current Visit: Yes Status: Resolved (4) Dementia Current Visit: Yes Status: Suspected (5) History of recent fall Current Visit: Yes Status: Acute (6) Dyslipidemia Current Visit: Yes Status: Chronic Hospital Course: Patient is an 87-year-old female with a past medical history of hypertension, dyslipidemia, osteoarthritis, and hearing loss who presented to the ER at the direction of Dr. Elizabeth for low sodium levels. She had been in Dr. Elizabeth's office yesterday for a medical evaluation for assisted living. The family had been seeking assisted living due to increasing confusion worsening over the last 2 weeks. At that point in time he maira blood work and this morning called the family with results of a sodium of 115, informed her not to take Lasix or Dyazide, and directed them to the ER. In the ER she underwent an extensive evaluation. Her vital signs were found to be within normal limits. Laboratory analysis revealed a white blood cell count of 12.8, sodium of 117, chloride 78, carbon dioxide 32, and BUN of 19. Her AST was mildly elevated at 81, total bilirubin 1.6. She was started on normal saline at a rate of 75 mL/h and she was admitted to the selective care unit. Her sodium slowly increased with her diuretics being held and minimal fluid resuscitation. However they abruptly increased by 6 in approximately 4 hours between 6:57 AM on the morning of 11/14. Her normal saline was transitioned to D5 to slow the rapid rate of correction. She is currently awaiting nephrology consultation. Urine sodium is less than 5 showing appropriate retention of sodium. She was taken off all fluids on the afternoon of 11/14. She had an echocardiogram which showed preserved ejection fraction at 55%, mild left ventricular hypertrophy, and trace tricuspid regurgitation. On the morning of her sodium was 132. Her WBC had increased slightly, blood pressure was elevated, and she was retaining more fluid. Chest x-ray was completed which showed fluid, but no signs of infection. Urinalysis had been done at the beginning of her admission and was negative. Patient was not having any urinary symptoms. It is felt that her elevated white blood cell count is likely due to stress but not a current infection. She has been afebrile. Her blood pressure and fluid overload improved with the additional of spironolactone and norvasc. She was determined stable for disharge. She'll be going a [facility] assisted living. She will receive home health services with residential. She will have a follow-up BMP in 2 days and a follow-up CBC. She also follow-up with Dr. Elizabeth in 1-[address] Watson of nephrology in 1 week. She was discharged home in stable condition. Patient seen and examined at bedside. She reports wanting to go home. She denies any chest pain, shortness of breath, nausea, or vomiting. She states she remembers me from yesterday, but then cannot remember that her family visited yesterday. She denies any nausea or vomiting. Vital signs reviewed and stable. General: non toxic, no distress, appears at stated age Derm: warm, dry Head: atraumatic, normocephalic, symmetric Eyes: EOMI, no lid lag, anicteric sclera Mouth: no lip lesion, mucus membranes moist Cardiovascular: S1S2 reg, no murmur, positive posterior tibial pulse bilateral, Lungs: rhonchi b/l bases, improved from yesterday , no accessory muscle use Abdominal: soft, nontender to palpation, no guarding, no appreciable organomegaly Ext: no gross muscle atrophy, trace edema right, 2 + edema LLE, no contractures Neuro: CN II-XI grossly intact, no focal neuro deficits Psych: Alert, oriented, appropriate affect A total of 45 minutes of time were spent preparing this complex discharge summary . Pertinent Studies: echocardiogram which showed preserved ejection fraction at 55%, mild left ventricular hypertrophy, and trace tricuspid regurgitation Chest x-ray-mild interstitial phase pulmonary edema Patient Condition at Discharge: Stable Plan - Discharge Summary Discharge Rx Participant: No New Discharge Prescriptions: New RX: amLODIPine [Norvasc] 2.5 mg PO DAILY #30 tab RX: Spironolactone [Aldactone] 25 mg PO DAILY #30 tab Continue RX: Simvastatin [Zocor] 40 mg PO DAILY RX: Ascorbic Acid [Vitamin C] 500 mg PO DAILY RX: Metoprolol Tartrate [Lopressor] 25 mg PO BID Discontinued Meloxicam [Mobic] 7.5 mg PO DAILY Furosemide [Lasix] 20 mg PO DAILY Triamterene-Hctz 37.5-25Mg [Dyazide 37.5-25 Capsule] 1 cap PO DAILY Discharge Medication List RX: Ascorbic Acid [Vitamin C] 500 mg PO DAILY 11/13/17 [History] RX: Metoprolol Tartrate [Lopressor] 25 mg PO BID 11/13/17 [History] RX: Simvastatin [Zocor] 40 mg PO DAILY 11/13/17 [History] RX: Spironolactone [Aldactone] 25 mg PO DAILY #30 tab 11/16/17 [Rx] RX: amLODIPine [Norvasc] 2.5 mg PO DAILY #30 tab 11/16/17 [Rx] Follow up Appointment(s)/Referral(s): Rohan Elizabeth MD [Primary Care Provider] - 1-2 days Vaibhav Watson DO [STAFF PHYSICIAN] - 1 Week Ambulatory/Diagnostic Orders: Basic Metabolic Panel [LAB.AMB] Location: Determined By Patient Activity/Diet/Wound Care/Special Instructions: Regular diet Fluid restriction of 1000mL Activity as tolerated. Discharge Disposition: HOME WITH HOME HEALTH SERVICES
--- NOTE | 2017-11-16 12:00 | PN ---
PROGRESS NOTE The patient is seen for followup for hyponatremia. The serum sodium level has improved, which is at 132 now. Admission sodium was 117. Etiology is increased free water intake along with thiazide diuretics. Currently patient is not on any IV fluids. She is maintained on fluid restriction. No thiazides on board. PHYSICAL EXAMINATION: On examination, blood pressure is 142/65, heart rate 75 per minute. Patient is afebrile. EXAMINATION OF THE HEART: S1, S2. EXAMINATION OF THE LUNGS: Bilateral breath sounds are heard. Abdomen is soft, nontender. Examination of the lower extremities shows no significant edema. [employer] exam is grossly intact. LABS: Labs show sodium 132, potassium 4.2, serum creatinine 0.72, hemoglobin 14.9 g/dL. ASSESSMENT: 1. Hyponatremia secondary to increased free water intake and thiazide diuretics, currently resolved. The patient is maintained on fluid restriction. She is advised to maintain good oral protein intake and I will change the fluid restriction to about 1 L from 800 mL. The patient will need to remain off of the thiazide diuretics for now. 2. Early dementia. 3. Obesity. 4. Hypertension, maintained on amlodipine. PLAN: The patient is stable for discharge. Avoid thiazide diuretics. Monitor electrolytes as outpatient. Increase protein intake and maintain fluid restriction. I will the fluid restriction to about 1000 mL from 800 mL. MMODL / IJN: [id number] /
== END 2017-11-16 12:20 | disposition home health service (06) | DRG 640 ==
LOC: EC 09:44 → 6SEL 11:43 → 5MS5E 11-15 20:03
PROVIDERS: ADMIT Internal Medicine; ATTEND Internal Medicine
DX: E87.1 Hypo-osmolality and hyponatremia (principal); G93.41 Metabolic encephalopathy; I16.0 Hypertensive urgency; I10 Essential (primary) hypertension; E78.00 Pure hypercholesterolemia, unspecified; M79.89 Other specified soft tissue disorders; T50.2X5A Adverse effect of carbonic-anhydrase inhibitors, benzothiadiazides and other diuretics, initial encounter; M19.90 Unspecified osteoarthritis, unspecified site; H91.90 Unspecified hearing loss, unspecified ear; Z96.1 Presence of intraocular lens; F03.90 Unspecified dementia, unspecified severity, without behavioral disturbance, psychotic disturbance, mood disturbance, and anxiety; Z91.81 History of falling; D72.829 Elevated white blood cell count, unspecified; E66.9 Obesity, unspecified; E78.5 Hyperlipidemia, unspecified; Z90.710 Acquired absence of both cervix and uterus; Z98.42 Cataract extraction status, left eye; Z98.41 Cataract extraction status, right eye; Z86.010 Personal history of colon polyps; Z82.49 Family history of ischemic heart disease and other diseases of the circulatory system
CPT/HCPCS: 36415; 71045; 80048; 80051; 80053; 81003; 82533; 82550; 82553; 83735; 83930; 83935; 84100; 84300; 84484; 85025; 85027; 85610; 85730; 93005; 93306; 96360; 96361; 99285